=== PATIENT | male | born 1945 | race Caucasian/White ===

== ENCOUNTER 2017-07-09 07:57 | Emergency (ER) | payer MEDICARE, OTHER ==
[~2017-07-09] VITALS: Ht 175.3 cm; Wt 122.5 kg
[~2017-07-09 07:57] MED LIST: ALLOPURINOL 30300 M1 PO; ARTIFICIAL TEAR15 M1 OP; ASPIR 8181 MG PO; ASPIRIN EC81 M1 PO; CALCIUM CITRAT1 EA14 PO; CARDIZEM CD240 MG PO; CARTIA XT240 M1 PO; CENTRUM SILVER1 EAC2 PO; COZAAR 50 MG TA50 MG PO; ECONOPRED PLUS10 M1; FLECAINIDE ACET50 M1 PO; FUROSEMIDE 20 M20 M1 PO; HYDROCODON-ACE1 EAC7 PO; KLOR-CON 1010 MEQ PO; NAPROSYN500 MG PO; NORCO 5-325 TA1 EACH PO; NORVASC10 MG PO; OMEPRAZOLE 20 M20 M1 PO; POTASSIUM20 PO; PRADAXA150 MG PO; PRED FORTE 1% EY5 M1 OP; PRED-FORTE OPHTH1 M1 OP; PREDNISONE 10 M10 MG PO; PREDNISONE 5 MG5 M1 PO; PROAIR HFA8.5 GM INH; SORINE 80 MG TA80 M1 PO; TESSALON PERLE100 MG PO; VITAMIN B-12500 MCG PO; XARELTO20 MG PO; ZPAK PO
[2017-07-09] MEDS ORDERED: XARELTO20 MG PO (08:08)
[2017-07-09 08:23] LABS: URINE BILIRUBIN NEGATIVE (Negative); URINE BLOOD 3+ (Negative); URINE CLARITY CLOUDY; URINE COLOR RED; URINE GLUCOSE-RANDOM NEGATIVE (Negative); URINE KETONES NEGATIVE (Negative); URINE NITRITE-REFLEX NEGATIVE (Negative); URINE PROTEIN TRACE (Negative); URINE SPECIFIC GRAVITY 1.015 (1.005-1.030); URINE UROBILINOGEN 0.2 E.U./dl (0.2-1.0)
[2017-07-09 08:36] LABS: URINE LEUKOCYTES-REFLEX TRACE (Negative)
[2017-07-09 08:41] LABS: BACTERIA-REFLEX 1-9 Few /HPF (None Seen); CASTS None Seen /LPF (None Seen); CRYSTALS None Seen /LPF (None Seen); SQUAMOUS 0-3 Few /LPF (0-3); URINE RBC >20 Many /HPF (0-2); URINE WBC-REFLEX 0-5 Rare /HPF (0-5)
[2017-07-09 09:01] LABS: HEMATOCRIT 35.9 % (42.0-52.0); HEMOGLOBIN 11.8 gm/dL (14.0-18.0); MCH 27.1 pg (26.0-34.0); MCHC 32.8 g/dL (28.0-37.0); MCV 82.5 fL (80.0-100.0); MPV 8.1 fl. (7.2-11.1); RBC 4.35 mil/uL (4.50-6.00); RDW-CV 15.5 % (10.5-14.5); WBC 10.6 thou/uL (4.0-11.0)
[2017-07-09 09:16] LABS: CALCIUM 9.1 mg/dL (8.5-10.1); CREATININE 1.2 mg/dL (0.6-1.3); POTASSIUM 3.5 mmol/L (3.5-5.1)
[2017-07-09] MEDS ORDERED: KEFLEX500 M1 PO (09:33)
[2017-07-09 09:56] VITALS: BP 123/62
== END 2017-07-09 09:57 | disposition home or self-care (01) ==
LOC: M.ERS 07:57
PROVIDERS: Emergency Medicine Emergency Medical Services
DX: N30.91 Cystitis, unspecified with hematuria (principal); I10 Essential (primary) hypertension; K21.9 Gastro-esophageal reflux disease without esophagitis; I48.91 Unspecified atrial fibrillation; Z88.8 Allergy status to other drugs, medicaments and biological substances

== ENCOUNTER 2020-03-25 10:19 | Emergency (ER) | payer MEDICARE, OTHER ==
[~2020-03-25] VITALS: Ht 177.8 cm; Wt 113.4 kg
[~2020-03-25 10:19] MED LIST changes: +KEFLEX500 M1 PO
[2020-03-25] MEDS ORDERED: DILTIAZEM 24HR240 M1 PO (10:28)
[2020-03-25] MEDS ORDERED: VITAMIN B-121000 MC2 SUBLING (10:28)
[2020-03-25] MEDS ORDERED: FUROSEMIDE 20 M20 MG PO (10:28)
[2020-03-25] MEDS ORDERED: EFFER-K 20 MEQ20 ME1 PO (10:28)
[2020-03-25] MEDS ORDERED: PRED FORTE 1% EY5 M1 OPHTHALMIC (10:29)
[2020-03-25] MEDS ORDERED: PREDNISOLONE 5 M5 MG (10:30)
[2020-03-25] MEDS ORDERED: SOTALOL240 MG PO (10:30)
[2020-03-25] MEDS ORDERED: XARELTO20 MG PO (10:30)
[2020-03-25] MEDS ORDERED: NORCO 5-325 TA1 EAC2 PO (12:13)
[2020-03-25 12:30] VITALS: BP 129/78
== END 2020-03-25 12:31 | disposition home or self-care (01) ==
LOC: M.ERS 10:19
DX: R07.81 Pleurodynia (principal); I10 Essential (primary) hypertension; K21.9 Gastro-esophageal reflux disease without esophagitis; I48.91 Unspecified atrial fibrillation; Z88.8 Allergy status to other drugs, medicaments and biological substances; Z86.2 Personal history of diseases of the blood and blood-forming organs and certain disorders involving the immune mechanism; W01.0XXA Fall on same level from slipping, tripping and stumbling without subsequent striking against object, initial encounter; Y93.89 Activity, other specified; Y92.89 Other specified places as the place of occurrence of the external cause; Y99.8 Other external cause status

== ENCOUNTER → 2020-10-28 | Outpatient (CLI) | payer MEDICARE, OTHER ==
[~2020-10-28] MED LIST changes: +DILTIAZEM 24HR240 M1 PO; +EFFER-K 20 MEQ20 ME1 PO; +FUROSEMIDE 20 M20 MG PO; +NORCO 5-325 TA1 EAC2 PO; +PRED FORTE 1% EY5 M1 OPHTHALMIC; +PREDNISOLONE 5 M5 MG; +SOTALOL240 MG PO; +VITAMIN B-121000 MC2 SUBLING
[2020-10-28 12:12] LABS: HEMATOCRIT 41.3 % (42.0-52.0); HEMOGLOBIN 13.9 gm/dL (14.0-18.0); MCH 28.3 pg (26.0-34.0); MCHC 33.6 g/dL (28.0-37.0); MCV 84.3 fL (80.0-100.0); MPV 7.4 fl. (7.2-11.1); RBC 4.9 mil/uL (4.50-6.00); RDW-CV 14.8 % (10.5-14.5); WBC 14.5 thou/uL (4.0-11.0)
== END ==
LOC: M.LAB 11:51
PROVIDERS: ATTEND Internal Medicine Cardiovascular Disease
DX: I10 Essential (primary) hypertension (principal); Z79.01 Long term (current) use of anticoagulants

== ENCOUNTER → 2021-03-22 | Outpatient (CLI) | payer MEDICARE, OTHER ==
[2021-03-22 11:22] LABS: ABSOLUTE BASOPHILS 0.1 thou/uL (0.0-0.2); ABSOLUTE EOSINOPHILS 0.2 thou/uL (0.0-0.7); ABSOLUTE MONOCYTES 0.7 thou/uL (0.0-1.2); ABSOLUTE NEUTROPHILS 9.2 thou/uL (1.6-8.1); BASOPHILS 1.1 %; EOSINOPHILS 2.1 %; HEMATOCRIT 41.1 % (42.0-52.0); HEMOGLOBIN 13.7 gm/dL (14.0-18.0); LYMPHOCYTES 8.9 %; MCH 28.5 pg (26.0-34.0); MCHC 33.2 g/dL (28.0-37.0); MCV 85.8 fL (80.0-100.0); MPV 7.4 fl. (7.2-11.1); NUCLEATED RBCS 0 /100WBC; PLATELET COUNT* 175 thou/uL (150-400); POLYS 81.9 %; RBC 4.79 mil/uL (4.50-6.00); RDW-CV 15.6 % (10.5-14.5); WBC 11.3 thou/uL (4.0-11.0)
[2021-03-22 11:41] LABS: CALCIUM 8.9 mg/dL (8.5-10.1)
[2021-03-22 11:47] LABS: POTASSIUM 3.5 mmol/L (3.5-5.1)
== END ==
LOC: M.LAB 10:29
PROVIDERS: ATTEND Nurse Practitioner
DX: R06.00 Dyspnea, unspecified (principal); R60.9 Edema, unspecified

== ENCOUNTER → 2021-03-31 | Outpatient (CLI) | payer MEDICARE, OTHER ==
[2021-03-31 11:39] LABS: CALCIUM 8.6 mg/dL (8.5-10.1); POTASSIUM 3.3 mmol/L (3.5-5.1)
== END ==
LOC: M.LAB 10:52
PROVIDERS: ATTEND Nurse Practitioner
DX: I48.0 Paroxysmal atrial fibrillation (principal); I35.0 Nonrheumatic aortic (valve) stenosis; I10 Essential (primary) hypertension; R80.9 Proteinuria, unspecified

== ENCOUNTER → 2021-04-12 | Outpatient (CLI) | payer MEDICARE, OTHER ==
[2021-04-12 10:49] LABS: CALCIUM 8.9 mg/dL (8.5-10.1); POTASSIUM 3.7 mmol/L (3.5-5.1)
== END ==
LOC: M.LAB 10:13
PROVIDERS: ATTEND Nurse Practitioner
DX: I48.0 Paroxysmal atrial fibrillation (principal); I35.0 Nonrheumatic aortic (valve) stenosis; I10 Essential (primary) hypertension; R60.9 Edema, unspecified